=== PATIENT | female | born 1940 | race Caucasian/White ===

== ENCOUNTER 2023-09-19 06:04 | Day surgery (SDC) | payer OTHER, SELFPAY ==
[2023-08-22 08:02] VITALS: BMI 24.1
[2023-08-22 10:13] LABS: Hematocrit 42.8 % (37.0-47.0); Hemoglobin 14.3 g/dL (12.0-16.0); Mean Corp Hgb Conc. 33.4 g/dL (33.0-37.0); Mean Corpuscular Hgb 29.5 pg (27.0-31.0); Mean Corpuscular Volume 88.4 fL (81.0-99.0); Platelet Count 232 10^3/uL (130-400); Red Blood Cell Count 4.84 10^6/uL (4.20-5.40); Red Cell Dist. Width 12.7 % (11.5-14.5); White Blood Cell Count 6.3 10^3/uL (4.8-10.8)
[2023-08-22 10:56] LABS: Blood Urea Nitrogen 22 mg/dl (7-17); Calcium 9.5 mg/dl (8.4-10.2); Carbon Dioxide 27 mmol/L (22-30); Chloride 103 mmol/L (98-107); Estimated Creatinine Clearance 48 ml/min; Glucose 82 mg/dl (70-99); Potassium 4.4 mmol/L (3.5-5.1); Sodium 139 mmol/L (135-145); eGFR > 60.00
[2023-09-19] VITALS (9 sets, daily range): BP systolic 97–158; BP diastolic 34–82; BMI 24.1
[2023-09-19] MEDS: Pyridium 200 MG PO (07:08)
[2023-09-19] MEDS: NORMOSOL-R 1000 IV (07:08)
[2023-09-19] MEDS: ZOFRAN 4 MG IV (09:52)
== END 2023-09-19 11:26 | disposition home or self-care (01) ==
LOC: SDS 06:04
PROVIDERS: ATTENDING PHYSICIAN Obstetrics & Gynecology; FAMILY PHYSICIAN Family Medicine
DX: N81.11 Cystocele, midline (principal); N39.3 Stress incontinence (female) (male); N36.41 Hypermobility of urethra; Z79.899 Other long term (current) drug therapy
CPT/HCPCS: 57260; 36415; 80048; 85027; 86850; 86900; 86901; 93005; J1580

== ENCOUNTER → 2023-10-16 08:52 | Outpatient (REF) | payer OTHER, SELFPAY ==
[2023-10-16 10:49] LABS: Vitamin D, 25-OH*** 27.6 ng/mL (30-80)
[2023-10-16 11:07] LABS: ALT (SGPT) 26 U/L (0-35); AST (SGOT) 30 U/L (14-36); Albumin 4.1 g/dl (3.5-5.0); Alkaline Phosphatase 95 U/L (38-126); Blood Urea Nitrogen 16 mg/dl (7-17); Calcium 9.6 mg/dl (8.4-10.2); Carbon Dioxide 28 mmol/L (22-30); Chloride 103 mmol/L (98-107); Glucose 89 mg/dl (70-99); HDL Cholesterol 71 mg/dl; LDL Cholesterol, Calculated 60 mg/dl; Potassium 4.6 mmol/L (3.5-5.1); Sodium 141 mmol/L (135-145); Total Bilirubin 1.1 mg/dl (0.2-1.3); Total Cholesterol 151 mg/dl (50-199); Total Protein 6.7 g/dl (6.3-8.2); Triglyceride 100 mg/dl (10-149); Very Low Density Lipoprotein 20 mg/dl (0-30); eGFR > 60.00
[2023-10-16 11:47] LABS: TSH 2.53 uIU/ml (0.47-4.68)
== END ==
LOC: REG 08:52
PROVIDERS: ATTENDING PHYSICIAN Family Medicine
DX: Z00.00 Encounter for general adult medical examination without abnormal findings (principal); I10 Essential (primary) hypertension; E78.5 Hyperlipidemia, unspecified; E55.9 Vitamin D deficiency, unspecified
CPT/HCPCS: 36415; 80053; 80061; 82306; 84443

== ENCOUNTER 2024-02-19 11:09 | Outpatient (RCR) | payer OTHER, SELFPAY | END 2024-02-19 23:59 | disposition home or self-care (01) | LOC: RPT 11:09 | PROVIDERS: ATTENDING PHYSICIAN Family Medicine | DX: R53.81 Other malaise (principal); Z73.6 Limitation of activities due to disability; M54.9 Dorsalgia, unspecified | CPT/HCPCS: 97110; 97162; 97535 ==

== ENCOUNTER 2024-03-08 11:24 | Outpatient (RCR) | payer OTHER, SELFPAY | END 2024-03-08 12:58 | disposition home or self-care (01) | LOC: RPT 11:24 | PROVIDERS: ATTENDING PHYSICIAN Family Medicine | DX: R53.81 Other malaise (principal); Z73.6 Limitation of activities due to disability; M54.9 Dorsalgia, unspecified | CPT/HCPCS: 97110 ==

== ENCOUNTER → 2024-10-23 10:11 | Outpatient (REF) | payer OTHER, SELFPAY | LOC: HWRAD 10:11 | PROVIDERS: ATTENDING PHYSICIAN Family Medicine | DX: Z13.820 Encounter for screening for osteoporosis (principal); M85.89 Other specified disorders of bone density and structure, multiple sites; Z78.0 Asymptomatic menopausal state | CPT/HCPCS: 77080 ==